=== PATIENT | female | born 1955 | race Caucasian/White ===

== ENCOUNTER → 2018-08-04 | Outpatient (CLI) | payer OTHER | LOC: FIMAGING 09:30 | PROVIDERS: ATTEND Family Medicine | DX: Z13.6 Encounter for screening for cardiovascular disorders (principal); M85.80 Other specified disorders of bone density and structure, unspecified site; N20.0 Calculus of kidney; F32.9 Major depressive disorder, single episode, unspecified | CPT/HCPCS: 0126T ==